=== PATIENT | male | born 1970 | race Two or more races ===

== ENCOUNTER 2017-11-21 14:33 | Outpatient (CLI) | payer OTHER | END 2017-11-21 14:44 | disposition home or self-care (01) | LOC: RAD 14:33 | DX: M25.562 Pain in left knee (principal); Z96.652 Presence of left artificial knee joint; M79.642 Pain in left hand; M65.332 Trigger finger, left middle finger; M25.571 Pain in right ankle and joints of right foot; M25.572 Pain in left ankle and joints of left foot; M17.12 Unilateral primary osteoarthritis, left knee; M54.5 Low back pain ==

== ENCOUNTER 2023-05-02 10:45 | Outpatient (CLI) | payer OTHER | END 2023-05-02 10:52 | disposition home or self-care (01) | LOC: RAD 10:45 | PROVIDERS: ATTEND Orthopaedic Surgery | DX: M25.551 Pain in right hip (principal); M25.552 Pain in left hip; M25.561 Pain in right knee ==

== ENCOUNTER → 2023-05-10 | Outpatient (CLI) | payer OTHER | END | disposition home or self-care (01) | LOC: RAD 13:18 | PROVIDERS: ATTEND Orthopaedic Surgery | DX: M77.12 Lateral epicondylitis, left elbow (principal) ==

== ENCOUNTER 2023-07-29 07:58 | Outpatient (CLI) | payer OTHER ==
[2023-07-29 08:49] LABS: HEMATOCRIT 39.6 % (39.0-48.0); HEMOGLOBIN 13.7 g/dL (13-16.00); MEAN CELL VOLUME 87.5 fL (80.0-100.00); MEAN CORPUSCULAR HEMOGLOBIN 30.2 pg (27.00-32.0); MEAN CORPUSCULAR HGB CONC 34.5 g/dl (32.0-36.0); PLATELET COUNT 252 K/uL (150-450); RED BLOOD COUNT 4.53 M/uL (4.00-6.00); RED CELL DISTRIBUTION WIDTH 13.3 % (11.5-14.5)
[2023-07-29 09:14] LABS: PH,URINE 7.5 (5.0-8.0); URINE APPEARANCE Clear; URINE BILIRRUBIN Negative (NEGATIVE); URINE BLOOD Negative; URINE COLOR Yellow; URINE GLUCOSE Negative (NEGATIVE); URINE LEUKOCYTE Trace; URINE NITRATE Negative; URINE PROTEIN Negative (NEGATIVE)
[2023-07-29 09:18] LABS: URINE BACTERIA 54.1 uL (0.0-1933); URINE EPITHELIAL CELLS 1.8 uL (0.0-38.8); URINE RBC 3.4 uL (0.0-20.8); URINE WBC 2.6 uL (0.0-23.2)
[2023-07-29 09:24] LABS: INR 1.07; PARTIAL THROMBOPLASTIN TIME 31.2 SECONDS (22.0-34.0); PROTHROMBIN TIME 11.2 SECONDS (9.0-11.5)
[2023-07-29 09:28] LABS: ALBUMIN 3.9 gm/dL (3.4-5.0); BILIRUBIN TOTAL 0.5 mg/dL (0.3-1.2); CALCIUM 9.1 mg/dL (8.5-10.1); COL EPI 112 SECONDS (82-175); CREATININE SERUM 0.93 mg/dL (0.70-1.30); GFR 84.67; GLOBULINA 3.6 G/DL (2.4-3.5); POTASSIUM 4.17 mEq/L (3.5-5.1); TOTAL PROTEIN 7.5 gm/dL (6.4-8.2)
== END 2023-07-29 07:59 | disposition home or self-care (01) ==
LOC: LAB 07:58
PROVIDERS: ATTEND Orthopaedic Surgery
DX: D64.9 Anemia, unspecified (principal); E88.89 Other specified metabolic disorders; D68.8 Other specified coagulation defects; N39.0 Urinary tract infection, site not specified; Z22.322 Carrier or suspected carrier of Methicillin resistant Staphylococcus aureus; E11.9 Type 2 diabetes mellitus without complications; I10 Essential (primary) hypertension; Z76.89 Persons encountering health services in other specified circumstances

== ENCOUNTER 2024-10-12 08:33 | Outpatient (CLI) | payer OTHER ==
[2024-10-12 10:34] LABS: PH,URINE 6.5 (5.0-8.0); URINE APPEARANCE Clear; URINE BILIRRUBIN Negative (NEGATIVE); URINE BLOOD Negative; URINE COLOR Yellow; URINE GLUCOSE Negative (NEGATIVE); URINE KETONE Negative (NEGATIVE); URINE LEUKOCYTE Trace; URINE NITRATE Negative; URINE PROTEIN Negative (NEGATIVE)
[2024-10-12 10:36] LABS: URINE BACTERIA 37.9 uL (0.0-1933); URINE RBC 6.4 uL (0.0-20.8); URINE WBC 9.1 uL (0.0-23.2)
[2024-10-12 10:39] LABS: HEMATOCRIT 39.8 % (39.0-48.0); HEMOGLOBIN 13.3 g/dL (13-16.00); MEAN CELL VOLUME 88.8 fL (80.0-100.00); MEAN CORPUSCULAR HEMOGLOBIN 29.6 pg (27.00-32.0); MEAN CORPUSCULAR HGB CONC 33.3 g/dl (32.0-36.0); PLATELET COUNT 234 K/uL (150-450); RED BLOOD COUNT 4.49 M/uL (4.00-6.00); RED CELL DISTRIBUTION WIDTH 13.7 % (11.5-14.5)
[2024-10-12 10:41] LABS: URINE EPITHELIAL CELLS 1.2 uL (0.0-38.8)
[2024-10-12 10:52] LABS: INR 1.04; PARTIAL THROMBOPLASTIN TIME 29.1 SECONDS (22.0-34.0); PROTHROMBIN TIME 11.3 SECONDS (9.0-11.5)
[2024-10-12 11:01] LABS: COL EPI 89 SECONDS (82-175)
[2024-10-12 11:17] LABS: ALBUMIN 3.7 gm/dL (3.4-5.0); BILIRUBIN TOTAL 0.72 mg/dL (0.3-1.2); CALCIUM 8.8 mg/dL (8.5-10.1); CREATININE SERUM 0.97 mg/dL (0.70-1.30); GFR 80.35; GLOBULINA 3.7 G/DL (2.4-3.5); POTASSIUM 4.66 mEq/L (3.5-5.1); TOTAL PROTEIN 7.4 gm/dL (6.4-8.2)
== END 2024-10-12 08:54 | disposition home or self-care (01) ==
LOC: RAD 08:33 → LAB 08:33 → RAD 08:54
PROVIDERS: ATTEND Orthopaedic Surgery
DX: D64.9 Anemia, unspecified (principal); E88.89 Other specified metabolic disorders; D68.8 Other specified coagulation defects; N39.0 Urinary tract infection, site not specified; Z22.322 Carrier or suspected carrier of Methicillin resistant Staphylococcus aureus; E11.9 Type 2 diabetes mellitus without complications; Z76.89 Persons encountering health services in other specified circumstances; I10 Essential (primary) hypertension

== ENCOUNTER 2024-10-22 08:45 | Inpatient (IN) | payer OTHER ==
[~2024-10-22] VITALS: Wt 104.3 kg
[2024-10-22] MEDS ORDERED: SILENOR6 MG PO (13:48)
[2024-10-22] MEDS ORDERED: METFORMIN HCL500 MG (13:49)
[2024-10-22] MEDS ORDERED: TRAMADOL HCL E100 M1 (13:49)
[2024-10-22] MEDS ORDERED: NEURONTIN600 M1 PO (13:50)
[2024-10-22] MEDS ORDERED: CAMBIA50 MG PO (13:50)
[2024-10-22] MEDS ORDERED: CRESTOR40 MG PO (13:51)
[2024-10-22] MEDS ORDERED: DIVALPROEX SOD500 M1 PO (13:51)
[2024-10-27] MEDS ORDERED: KETOROLAC TROMETHAMINE 60 MG VIAL IM ONE ×2 (08:49→10:45)
[2024-10-27] MEDS ORDERED: EPINEPHRINE HCL/PF 1 MG/ML AMPUL ONE (08:49)
[2024-10-27] MEDS ORDERED: VANCOMYCIN HCL 1,000 MG VIAL ONE (08:50)
[2024-10-27] MEDS ORDERED: CEFAZOLIN SODIUM 1,000 MG VIAL ONE ×2 (08:50→16:16)
[2024-10-27] MEDS ORDERED: TRANEXAMIC ACID 100MG/1ML (1000MG) AMPUL IV ONE ×3 (08:52→10:45)
[2024-10-27] MEDS ORDERED: SUGAMMADEX SODIUM 200 MG/2 ML VIAL IV ONE ×2 (10:16→10:45)
[2024-10-27] MEDS ORDERED: BUPIVACAINE HCL 30 ML VIAL IJ ONE (10:45)
[2024-10-27] MEDS ORDERED: MORPHINE SULFATE 4 MG/ML VIAL IV ONE (10:45)
[2024-10-27] MEDS ORDERED: VANCOMYCIN HCL 1,000 MG VIAL IR ONE (10:45)
[2024-10-27] MEDS ORDERED: CEFAZOLIN SODIUM 1,000 MG VIAL IV ONE (10:45)
[2024-10-27] MEDS ORDERED: LIDOCAINE HCL 1%/EPINEPHRINE 20ML VIAL IJ ONE (10:45)
[2024-10-27] MEDS ORDERED: EPINEPHRINE HCL/PF 1 MG/ML AMPUL IR ONE (10:45)
[2024-10-27] MEDS ORDERED: BUPIVACAINE HCL/MPF 0.5% 30ML VIAL ONE (14:26)
[2024-10-27] MEDS ORDERED: INSULIN LISPRO 1,000 UNIT/10 ML UNITS SUBCUTANEO PRN ×2 (14:30→15:30)
[2024-10-27] MEDS ORDERED: DEXTROSE 50 % IN WATER 0.5 G/ML DISP.SYRIN IV PRN ×2 (14:30→15:30)
[2024-10-27] MEDS ORDERED: PANTOPRAZOLE SODIUM 40 MG TABLET.DR PO SCH (15:10)
[2024-10-27] MEDS ORDERED: MEPERIDINE HCL/PF 50 MG/ML VIAL IM PRN (15:15)
[2024-10-27] MEDS ORDERED: SODIUM CHLORIDE 0.45 % 1,000 ML IV SCH (15:15)
[2024-10-27] MEDS ORDERED: ONDANSETRON HCL 2 MG/ML VIAL IV PRN (15:15)
[2024-10-27] MEDS ORDERED: ONDANSETRON 4 MG TAB.RAPDIS PO PRN (15:15)
[2024-10-27] MEDS ORDERED: PROMETHAZINE HCL 50 MG/ML AMPUL IM PRN (15:15)
[2024-10-27] MEDS ORDERED: TRAMADOL HCL 50 MG TABLET PO PRN (15:15)
[2024-10-27] MEDS ORDERED: ENALAPRILAT DIHYDRATE 1.25 MG/ML VIAL IV PRN (15:30)
[2024-10-27] MEDS ORDERED: CELECOXIB 200 MG CAPSULE PO SCH (17:00)
[2024-10-27] MEDS ORDERED: ACETAMINOPHEN 325 MG TABLET PO SCH (17:00)
[2024-10-27] MEDS ORDERED: CEFAZOLIN SODIUM 1,000 MG VIAL IV SCH (17:00)
[2024-10-27 17:16] VITALS: BP 133/84; O2SAT 91
[2024-10-27] MEDS ORDERED: KETOROLAC TROMETHAMINE 10 MG TABLET PO SCH (21:00)
[2024-10-28] VITALS: BP 104/63; O2SAT 97
[2024-10-28 07:31] LABS: HEMATOCRIT 31.2 % (39.0-48.0); HEMOGLOBIN 10.7 g/dL (13-16.00); MEAN CELL VOLUME 87.4 fL (80.0-100.00); MEAN CORPUSCULAR HEMOGLOBIN 29.9 pg (27.00-32.0); MEAN CORPUSCULAR HGB CONC 34.2 g/dl (32.0-36.0); PLATELET COUNT 188 K/uL (150-450); RED BLOOD COUNT 3.57 M/uL (4.00-6.00); RED CELL DISTRIBUTION WIDTH 13.5 % (11.5-14.5)
[2024-10-28 08:32] VITALS: BP 120/71; O2SAT 99
[2024-10-28] MEDS ORDERED: RIVAROXABAN 10 MG TAB PO SCH (09:00)
[2024-10-28 14:43] LABS: ALBUMIN 3.2 gm/dL (3.4-5.0); BILIRUBIN TOTAL 0.82 mg/dL (0.3-1.2); CALCIUM 8.6 mg/dL (8.5-10.1); CREATININE SERUM 0.96 mg/dL (0.70-1.30); GFR 81.32; GLOBULINA 3.2 G/DL (2.4-3.5); POTASSIUM 4.63 mEq/L (3.5-5.1); TOTAL PROTEIN 6.4 gm/dL (6.4-8.2)
[2024-10-28 16:00] VITALS: BP 127/69; O2SAT 96
[2024-10-29 00:43] VITALS: BP 124/73; O2SAT 95
[2024-10-29 07:01] LABS: HEMATOCRIT 28.2 % (39.0-48.0); HEMOGLOBIN 9.9 g/dL (13-16.00); MEAN CELL VOLUME 87.4 fL (80.0-100.00); MEAN CORPUSCULAR HEMOGLOBIN 30.6 pg (27.00-32.0); PLATELET COUNT 173 K/uL (150-450); RED BLOOD COUNT 3.22 M/uL (4.00-6.00); RED CELL DISTRIBUTION WIDTH 13.4 % (11.5-14.5)
[2024-10-29] MEDS ORDERED: SENNA/DOCUSATE SODIUM 1 TAB TABLET PO SCH (09:00)
[2024-10-29 12:08] VITALS: BP 118/71; O2SAT 99
== END 2024-10-29 16:35 | DRG 941 ==
LOC: SURH 10-27 07:00 → O/R 10-27 07:46 → SURH 10-27 08:45 → SURG 10-27 15:17
PROVIDERS: ADMIT Orthopaedic Surgery; ATTEND Orthopaedic Surgery
PROC: 0SRD0J9 Replacement of Left Knee Joint with Synthetic Substitute, Cemented, Open Approach (ICD-10-PCS; principal; 2024-10-27 07:00)
DX: T84.023D Instability of internal left knee prosthesis, subsequent encounter (principal); E11.9 Type 2 diabetes mellitus without complications; Z79.4 Long term (current) use of insulin